=== PATIENT | female | born 1955 | race Caucasian/White ===

== ENCOUNTER 2017-04-14 10:42 | Emergency (ER) | payer OTHER ==
[~2017-04-14] VITALS: Ht 160 cm; Wt 56.0 kg
[~2017-04-14 10:42] MED LIST: COLACE100 MG PO; FLEXERIL10 MG PO; LORTAB 5-325 M1 EACH PO; MEDROL DOSEPAK4 MG PO; SKELAXIN800 MG PO; VALIUM5 MG PO
[2017-04-14 13:10] LABS: HEMATOCRIT 40.1 % (36.0-46.0); MCH 31.1 PG (29.0-34.0); MCHC 33.9 G/DL (30.0-36.0); MCV 91.6 FL (83-99); RBC DIS.WIDTH-CV 12.2 % (11.8-14.6); RBC DIS.WIDTH-SD 41.1 % (39-53); RED BLOOD COUNT 4.38 M/uL (3.80-5.20); WHITE BLOOD COUNT 11.6 K/uL (4.1-10.2)
[2017-04-14 13:21] LABS: CHLORIDE 112 mEq/L (99-109); POTASSIUM 3.9 mEq/L (3.7-5.4); SODIUM 144 mEq/L (136-147)
[2017-04-14 13:22] LABS: GLUCOSE 100 mg/dL (70-99)
[2017-04-14 13:24] LABS: ANION GAP 9 MEQ/L (2-14)
[2017-04-14 13:26] LABS: GFR ESTIMATE (CALCULATED) > 59 mL/min/
[2017-04-14 13:27] LABS: UREA NITROGEN (BUN) 7 mg/dL (9-23)
[2017-04-14 13:32] LABS: TROP-I INTERPRETATION NEGATIVE; TROPONIN-I < 0.01 ng/mL (0.0-0.30)
[2017-04-14 14:04] LABS: MEAN PLAT.VOLUME 10.7 uM^3 (9.5-12.4); PLATELET COUNT 276 K/uL (156-360)
[2017-04-14 14:22] VITALS: BP 146/86
== END 2017-04-14 14:22 | disposition home or self-care (01) ==
LOC: EME 10:42
DX: R07.89 Other chest pain (principal); F17.200 Nicotine dependence, unspecified, uncomplicated
CPT/HCPCS: 71020; 80048; 84484; 85027; 93005; 99281; 99284; J1885